=== PATIENT | male | born 1950 | race Caucasian/White ===

== ENCOUNTER 2021-09-08 11:24 | Emergency (ER) | payer OTHER ==
[~2021-09-08] VITALS: Ht 170.2 cm; Wt 75.0 kg
[2021-09-08] MEDS ORDERED: DYN250C PO (12:30)
[2021-09-08] MEDS ORDERED: dicloxacillin 500 MG capsule PO SCH (12:30)
[2021-09-08] MEDS ORDERED: amox tr/potassium clavulanate 875/125mg TAB PO ONE (12:55)
[2021-09-08 13:02] VITALS: BP 138/92
== END 2021-09-08 13:04 | disposition home or self-care (01) ==
LOC: ER 11:25
DX: K11.20 Sialoadenitis, unspecified (principal); Z94.1 Heart transplant status; Z79.2 Long term (current) use of antibiotics
CPT/HCPCS: 99283